=== PATIENT | female | born 1975 | race Caucasian/White ===

== ENCOUNTER 2019-07-10 11:03 | Inpatient (IN) | payer MEDICAID ==
[~2019-07-10] VITALS: Ht 170.2 cm; Wt 94.0 kg
[2019-07-10] MEDS ORDERED: hydrOXYzine 25 MG tablet PO PRN (14:30)
[2019-07-10] MEDS ORDERED: loperamide 2mg capsule PO PRN (14:30)
[2019-07-10] MEDS ORDERED: LORazepam 1 MG tablet PO PRN (14:30)
[2019-07-10] MEDS ORDERED: magnesium hydroxide 30ml (MOM) UD suspension PO PRN (14:30)
[2019-07-10] MEDS ORDERED: mag hydrox/Alum hydrox/simeth 30ml oral suspension PO PRN (14:30)
[2019-07-10] MEDS ORDERED: FLU VACC QS2019-20 36MOS UP/PF 60 MCG/0.5 ML SYRINGE IMVAC ONE (15:35)
[2019-07-10 15:47] VITALS: BP 137/92
[2019-07-10] MEDS: acetaminophen 325mg tablet PO PRN (16:31)
--- NOTE | 2019-07-10 16:53 | NUR ---
ADMIT NOTE The patient is a 44 year old female from [facility]. She had been living at [facility]. She has a history of Depression, Schizophrenia, DMII, Hypothyroidism, and Knee Pain. It is reported in outside medical records she stopped taking her medications 1 week ago, but in another area it was reported no meds taken for the last 30 days. The correction reported she stopped eating, and speaking and could no longer care for herself. The patient does not speak. She will follow simple commands like "open your mouth" or "put your hands down" when prompted several times. She keeps her eyes shut and has rigid, shaky movements. She grabs her front tooth and at times both ears and acts as though she cannot let go. Her tox screen yesterday was negative. Medical records indicate she is a current every day smoker. She has a college degree, and has had a tubal ligation in 2017. She is currently on a LOS for fall risk and is unable to walk more than a step or two.
[2019-07-10 18:22] LABS: BASOPHILS # (AUTO) 0.1 X10'3 (0-0.2); BASOPHILS % (AUTO) 0.7 % (0-1); EOSINOPHILS % (AUTO) 0.2 % (0-6); HEMATOCRIT 42.8 % (35.0-45.0); HEMOGLOBIN 14.7 g/dl (12.0-16.0); LYMPHOCYTES # (AUTO) 1.2 X10'3 (1.1-4.8); LYMPHOCYTES % (AUTO) 10.9 % (21-51); MEAN CORPUSCULAR HEMOGLOBIN 32.5 PG (27.0-31.0); MEAN CORPUSCULAR HGB CONC 34.5 g/dL (33.0-36.5); MEAN CORPUSCULAR VOLUME 94.3 FL (78-98); MEAN PLATELET VOLUME 8.4 FL (7.4-10.4); MONOCYTES # (AUTO) 0.9 X10'3 (0-0.9); MONOCYTES % (AUTO) 8.3 % (2-12); NEUTROPHILS # (AUTO) 8.6 X10'3 (1.8-7.7); NEUTROPHILS % (AUTO) 79.9 % (42-75); PLATELET COUNT 350 X10'3 (140-440); RED BLOOD COUNT 4.54 X10'6 (4.20-5.60); RED CELL DISTRIBUTION WIDTH 12.4 % (11.5-14.5); WHITE BLOOD COUNT 10.8 X10'3 (4.5-11.0)
[2019-07-10 20:30] VITALS: BP 147/87
[2019-07-10] MEDS ORDERED: OLANZapine 5mg rapidly disint. tablet PO SCH (21:00)
[2019-07-10] MEDS ORDERED: CLOZAPINE 100 MG TAB.RAPDIS PO SCH (21:00)
[2019-07-10] MEDS ORDERED: benztropine 1mg tablet PO SCH (21:00)
[2019-07-10] MEDS ORDERED: CLOZAPINE 25 MG oral disintegrating tablet PO SCH (21:00)
[2019-07-10 22:40] VITALS: BP 130/74
--- NOTE | 2019-07-10 22:40 | NUR ---
Nursing Note: At approximately 2240, around one-hour after administering ordered dose of Clozaril, pt. began drooling and coughing while laying in bed. HOB raised and pt. repositioned for safety to prevent aspiration. V/S obtained, pulse and temperature slightly elevated, however BP and oxygen saturation WNL and lung sounds clear bilaterally. Pt. has a strong cough and is able to clear thin saliva, and spontaneously expectorate. She continues to be monitored throughout the night, and V/S return to WNL. Will endorse to AM shift and monitor.
[2019-07-11] MEDS ORDERED: DOCU-148 PO (00:19)
[2019-07-11] MEDS ORDERED: [UNRECOGNIZED DRUG - CODE] OT (00:19)
[2019-07-11] MEDS ORDERED: LITH300C PO (00:19)
[2019-07-11] MEDS ORDERED: LEVO125T PO (00:19)
[2019-07-11] MEDS ORDERED: LORA10TA7 PO (00:19)
[2019-07-11] MEDS ORDERED: MULT-685 PO (00:19)
[2019-07-11] MEDS ORDERED: BUDE10.2 INH (00:19)
[2019-07-11] MEDS ORDERED: FENO145T38 PO (00:19)
[2019-07-11] MEDS ORDERED: SUCR1TAB PO (00:19)
[2019-07-11] MEDS ORDERED: MELO-102 PO (00:19)
[2019-07-11] MEDS ORDERED: CLOZ100T35 PO (00:19)
[2019-07-11] MEDS ORDERED: DESO1TAB71 PO (00:19)
[2019-07-11] MEDS ORDERED: VENL150C2 PO (00:19)
[2019-07-11] MEDS ORDERED: FLUT15.87 NS (00:19)
[2019-07-11] MEDS ORDERED: DESM0.2T29 PO (00:19)
[2019-07-11] MEDS ORDERED: POLY17PO10 PO (00:19)
[2019-07-11] MEDS ORDERED: TROL141. TP (00:19)
[2019-07-11 00:21] VITALS: BP 111/66
--- NOTE | 2019-07-11 02:01 | NUR ---
Nursing Progress Note: Legal hold:5150 Client on involuntary status for GD Report received from nurse with use of SBAR: LUCRECIA Jack Why are they here: The patient is a 44 year old female from [facility]. She had been living at [facility]. She has a history of Depression, Schizophrenia, DMII, Hypothyroidism, and Knee Pain. It is reported in outside medical records she stopped taking her medications 1 week ago, but in another area it was reported no meds taken for the last 30 days. The retirement reported she stopped eating, speaking, and could no longer care for herself. The patient does not speak. She will follow simple commands like "open your mouth" or "put your hands down" when prompted several times. She keeps her eyes shut and has rigid, shaky movements. Pt. is virtually catatonic, and is on LOS r/t fall precautions. Assessment What has happened this shift: Pt. laying in bed sleeping at the beginning of the shift, she remains on LOS r/t fall precautions and to provide assistance with ADLs. Attempted to complete 1:1 at bedside, however pt. remains non-verbal and unable to assess, she does make occasional noises and appears to be responding to internal stimuli. However, pt.responds to name and touch and is able to follow some verbal commands. She initially holds the blankets up over her face, but will lower them when requested to do so by this mortgage or loan underwriter. Pt. does not open her eyes however, and is totally dependent upon staff in order to perform ADLs. She is incontinent of urine X2 and has a small BM this shift, two-person assist required in order to change and reposition pt. She is repositioned on a different side following each incontinence episode and heels are floated in bed. Her muscles remain rigid and she appears virtually catatonic. Pt. refuses dinner, however is able to eat a yogurt at HS with total assist from staff. She also consumes approximately 240mL of fluids in the form of ice chips and small spoonfuls of water. Pt's swallow reflex is delayed, but she is able to swallow effectively upon receiving prompting from staff. Will endorse to AM shift r/t possible need for a swallow study. No s/s of pain exhibited by pt. this shift, and she does not appear to be grabbing at her bilateral ear canals, as noted by the previous shift, will continue to monitor. Pt. does occasionally grab at her front teeth, however is able to be redirected. S/I, H/I: Unable to assess, pt. non-verbal A/VH: Unable to assess, pt. non-verbal, however she appears to be responding to internal stimuli and will reach for and grab at imaginary objects. Sleep: Appears fatigued ADL's: Pt. requires total staff assist in order to perform ADLs Group attendance: N/A Were meds taken: Yes Any med S/E: After taking ordered HS Clozaril, pt. began to cough and drool heavily (see previous note), will endorse to AM shift and MD. Mental Status Exam Appearance: Hair disheveled, appropriately dressed in hospital attire. Eye contact: None Behavior: Cooperative, fatigued, and catatonic Speech: Pt. is non-verbal Mood: Fatigued Affect: Flat Thought process: Unable to assess Thought Content: Unable to assess Cognition: Unable to assess (responds to name) Insight: Poor Judgment: Poor Interventions PRN's used: None Therapeutic interventions: Introduced self and attempted to establish rapport, maintained a safe and therapeutic environment, provided needed assistance with ADLs, monitored pt. behavior and need for intervention, and maintained LOS and fall precautions. Restraints/seclusion/emergency medication: N/A Justification of Continued Inpatient Treatment: Pt. requires interruption of current crisis, medication adjustments, and a safe and supportive environment.
[2019-07-11 02:38] VITALS: BP 118/87
[2019-07-11 05:40] VITALS: BP 139/84
--- NOTE | 2019-07-11 05:41 | NUR ---
Nursing Note: Obtained last set of V/S, they remain WNL. Performed incontinence care on pt., incontinent X3 this shift. Pt. cooperative with process, awoke and opened eyes and stated, "I'm sorry." She then closed her eyes and went back to sleep, will endorse to AM shift.
[2019-07-11] MEDS: levoTHYROXINE 125mcg tablet PO SCH ×2 (07:00→07:29)
[2019-07-11 07:20] VITALS: BP 126/78
[2019-07-11 08:37] LABS: BASOPHILS # (AUTO) 0.1 X10'3 (0-0.2); BASOPHILS % (AUTO) 0.9 % (0-1); EOSINOPHILS % (AUTO) 0.3 % (0-6); HEMATOCRIT 42.7 % (35.0-45.0); HEMOGLOBIN 14.6 g/dl (12.0-16.0); LYMPHOCYTES # (AUTO) 1.7 X10'3 (1.1-4.8); LYMPHOCYTES % (AUTO) 16.2 % (21-51); MEAN CORPUSCULAR HEMOGLOBIN 32.7 PG (27.0-31.0); MEAN CORPUSCULAR HGB CONC 34.3 g/dL (33.0-36.5); MEAN CORPUSCULAR VOLUME 95.3 FL (78-98); MEAN PLATELET VOLUME 8.4 FL (7.4-10.4); MONOCYTES # (AUTO) 1.3 X10'3 (0-0.9); NEUTROPHILS # (AUTO) 7.4 X10'3 (1.8-7.7); NEUTROPHILS % (AUTO) 70.6 % (42-75); PLATELET COUNT 319 X10'3 (140-440); RED BLOOD COUNT 4.48 X10'6 (4.20-5.60); RED CELL DISTRIBUTION WIDTH 12.6 % (11.5-14.5); WHITE BLOOD COUNT 10.4 X10'3 (4.5-11.0)
--- NOTE | 2019-07-11 08:52 | NUR ---
Presenting Problems: Pt transferred from [place] following 5150 due to GD after pt decompensated in [facility] home as a result of self d/c of meds. Interventions: Bio-psychosocial Assessment SS attempted to engage pt in completing her bio-psychosocial assessment this AM. However, pt was found to be in a deep sleep, did not respond when SS attempt to rouse pt via touch and verbal prompts. A infrastructure tech support service provider was @ pt's bedside due to fall risk. As pt is currently unable to participate in assessment and to provide information re her MH conditions & functioning, nor was SS able to provide informed consent information; SS contacted [facility] via phone to gather information pertaining to pt's history of SMI, functional impairments, and resources available to pt to facilitate dcp. Per t/c, pt will be homeless on 07/25/19 as she's been evicted, noticed served on 06/25/19. Pt had experienced a rapid decline of functioning in the [facility] home about 3 mos ago (refusal to attend to hygiene care, complete routine house chores and to follow directions/redirections from house staff), pt began to refuse medications about a month ago and experienced angry outbursts in home with verbal & behavioral aggressive posturing. In addition, pt also has a history of LPS Conservatorship via [facility], and [facility] is exploring possibility of T-con. As pt was not able to participate in assessment nor was she able to provide informed consent, TP was not signed by pt. Plan: SS will attempt to see pt later today to engage her in assessment, treatment planning, and dcp activities. Michelle Johnson LCSW Addendum: 07/11/19 at 0908 by Michelle VENTURA Amended: Links added.
[2019-07-11 09:06] LABS: CHOL/HDL RATIO 2.6 (0.00-4.99); CHOLESTEROL 165 MG/DL (0-200); HDL CHOLESTEROL 63 MG/DL (35-60); LDL CHOLESTEROL 85 MG/DL (50-100); TRIGLYCERIDES 82 MG/DL (20-135)
--- NOTE | 2019-07-11 10:53 | NUR ---
Presenting Problems: Pt on 5150 for GD, unable to participate in assessment interview, treatment & discharge planning @ this time due to current MH condition. Interventions: Collateral Contact- [facility] SS had t/c w/[facility] & spoke w/Alexandre, per t/c [facility] will be petitioning for T-con status for pt. Plan: SS will continue to f/u w/[facility] re pt's legal status & dcp. LINK AkhtarW Addendum: 07/11/19 at 1057 by Michelle Johnson Amended: Links added.
[2019-07-11 11:30] LABS: ALANINE AMINOTRANSFERASE 17 U/L (12-78); ALBUMIN 3.8 G/DL (3.4-5.0); ALBUMIN/GLOBULIN RATIO 1.1 (1.1-1.5); ALKALINE PHOSPHATASE 43 IU/L (46-116); ANION GAP 14 (8-16); ASPARTATE AMINO TRANSFERASE 19 U/L (10-37); BILIRUBIN,TOTAL 0.5 MG/DL (0.1-1.0); BLOOD UREA NITROGEN 35 MG/DL (7-18); BUN/CREATININE RATIO 48.6 (6.6-38.0); CALCIUM 9.7 MG/DL (8.5-10.1); CHLORIDE 109 MMOL/L (99-107); CREATINE KINASE 25 U/L (26-192); CREATININE 0.72 MG/DL (0.40-0.90); GLUCOSE 114 MG/DL (70-104); POTASSIUM 3.4 MMOL/L (3.5-5.1); SODIUM 145 MMOL/L (135-145); TOTAL CARBON DIOXIDE 22.3 MMOL/L (24-32); TOTAL PROTEIN 7.2 G/DL (6.4-8.2); eGFR 88 ML/MIN
[2019-07-11] MEDS: LORazepam 1 MG tablet PO SCH (16:00)
--- NOTE | 2019-07-11 16:43 | NUR ---
Nursing Progress Note: Brianna Legal hold:5150 Client on involuntary status for GD Report received from nurse with use of SBAR: LUCRECIA Dias Why are they here: The patient is a 44 year old female from [facility]. She had been living at [facility]. She has a history of Depression, Schizophrenia, DMII, Hypothyroidism, and Knee Pain. It is reported in outside medical records she stopped taking her medications 1 week ago, but in another area it was reported no meds taken for the last 30 days. The prison reported she stopped eating, speaking, and could no longer care for herself. The patient does not speak. She will follow simple commands like "open your mouth" or "put your hands down" when prompted several times. She keeps her eyes shut and has rigid, shaky movements. Pt. is virtually catatonic, and is on LOS r/t fall precautions. Assessment What has happened this shift: Pt. laying in bed sleeping at the beginning of the shift. It was reported that client was drooling excessively and initially had a temp. of 99.5 followed by another follow up temp of 100.5 within the hour. I assumed her care at 0830 and her temp was 99.5. At 0900 hours, client temp remained at 99.5. She is unable to eat or conduct ADL's and was on LOS until 0900. Client responds to loud verbal stimuli but will only move her eyes. Cold compresses in place for client comfort to head, neck area. Client HOB at 30 degrees and informal aspiration precautions utilized. MINH Galindoey on unit at 0920 hours and is aware of client condition. At 0930, patient temp was 100.4. Charge Nurse and PA made aware verbally. Labs ordered STAT at 1020 hours (CMP and CK) per Arturo Schwab. FS was 113 this am. Temp at 1036 hours was 98.5. Temp is now 98.5 (1113 hours). Client to be turned q2 hours to prevent further skin breakdown.. Reddened area noted over coccyx area. CRN aware as is PA in charge of her care. Barrier Cream will be utilized PRN for any affected areas. Client will also be encouraged to increase fluid intake. All Staff members are aware of these issues and orders. Temp at 1229 hours was 99.5. All temps have been taken by temporal method. Client is unable to feed herself and will require 1:1 for delivery of lunch. Client is now able to open her eyes and communicate her needs to Staff (1312 hours). Client did consume 50 percent of her noon meal with full assistance from Tech (Baltazar). X-Ray tech is at 1453 hours. Temp at 1515 hours was 99.0. Client has been getting position changed Q2 hours to prevent skin breakdown. Client temp at 1641 hours is 99.0. Position changes continue Q2 hours to prevent further breakdown over coccyx area. Barrier cream is in [employer] for patient. S/I, H/I: Unable to assess, pt. non-verbal A/VH: Unable to assess, pt. non-verbal, however she appears to be responding to internal stimuli and will reach for and grab at imaginary objects. Sleep: resting frequently this shift. ADL's: Pt. requires total staff assist in order to perform ADLs Group attendance: N/A Were meds taken: no Any med S/E: After taking ordered HS Clozaril, pt. began to cough and drool heavily (see previous note), will endorse to AM shift and MD. Mental Status Exam Appearance: Hair disheveled, appropriately dressed in hospital attire. Eye contact: None Behavior: Cooperative, fatigued, and catatonic Speech: Pt. is non-verbal Mood: Fatigued Affect: Flat Thought process: Unable to assess Thought Content: Unable to assess Cognition: Unable to assess (responds to name) Insight: Poor Judgment: unable to assess Interventions PRN's used: None Therapeutic interventions: Introduced self and attempted to establish rapport, maintained a safe and therapeutic environment, provided needed assistance with ADLs, monitored pt. behavior and need for intervention, and maintained LOS and fall precautions. Restraints/seclusion/emergency medication: N/A Justification of Continued Inpatient Treatment: Pt. requires interruption of current crisis, medication adjustments, and a safe and supportive environment.
[2019-07-11] MEDS ORDERED: azithromycin 250mg tablet PO ONE (18:00)
[2019-07-11 20:06] VITALS: BP 143/82
[2019-07-11] MEDS: CLOZAPINE 100 MG TAB.RAPDIS PO SCH (21:22)
[2019-07-11] MEDS ORDERED: lithium carbonate 150mg capsule PO SCH (21:41)
[2019-07-11] MEDS ORDERED: lithium carbonate 150mg capsule PO ONE (21:45)
--- NOTE | 2019-07-11 22:07 | NUR ---
Nursing Note: Pharmacy sent Dimock Carbonate ER for pt., clarified order on Med Recc and per MD notes that order was meant to be Dimock Carbonate 300mg at HS. Medication order adjusted according by pharmacy.
[2019-07-12] MEDS: LORazepam 1 MG tablet PO SCH ×3 (00:06→16:00)
--- NOTE | 2019-07-12 00:57 | NUR ---
Nursing Progress Note: Legal hold:5150 Client on involuntary status for GD Report received from nurse with use of SBAR: LUCRECIA Urbina Why are they here: The patient is a 44 year old female from [facility]. She had been living at [facility]. She has a history of Depression, Schizophrenia, DMII, Hypothyroidism, and Knee Pain. It is reported in outside medical records she stopped taking her medications 1 week ago, but in another area it was reported no meds taken for the last 30 days. The detention reported she stopped eating, speaking, and could no longer care for herself. The patient does not speak. She will follow simple commands like "open your mouth" or "put your hands down" when prompted several times. She keeps her eyes shut and has rigid, shaky movements. Pt. is virtually catatonic, and is on LOS r/t fall precautions. Assessment What has happened this shift: Pt. laying in bed with eyes closed at the beginning of the shift, she continues on fall precautions and requires maximum assistance with ADLs. Attempted to complete 1:1 at bedside, pt. remains non-verbal, however she does respond to her name and touch. She will nod yes/no to some questions such as (are you hungry/thirsty?) Pt. does not open her eyes, but is able to follow simple commands, and continues to present as somewhat internally preoccupied. It was given in report that pt was able to eat 100% of her dinner and she accepts an HS snack, however she continues to require full assistance to eat. Her swallow reflex appears to be intact without delay, and she does not require prompting in order to appropriately swallow as noted previously. Pt. has an occasional non-productive strong cough, head of bed remains elevated at 30 degrees per aspiration precautions. She continues to be virtually catatonic, however is able to move her bilateral upper arms, but her lower body remains rigid. Pt. continues to be incontinent and requires maximum two-person assist for corky-care. She is repositioned Q 2 hrs, heels floated with antonio boots in place to prevent skin breakdown, barrier cream applied to buttocks, and fluids encouraged upon each repositioning. No s/s of pain exhibited by pt. this shift, and she does not appear to be grabbing at ears/teeth, as noted previously, will continue to monitor. V/S WNL, bed low and locked r/t fall precautions, fall band in place, and Q 15 min safety checks. S/I, H/I: Unable to assess, pt. non-verbal A/VH: Unable to assess, pt. non-verbal, she does not open her eyes but continues to present as somewhat internally preoccupied. Sleep: Continues to appear fatigued and sleeping well ADL's: Pt. requires total staff assist in order to perform ADLs Group attendance: N/A Were meds taken: Yes Any med S/E: None Mental Status Exam Appearance: Hair disheveled, appropriately dressed in hospital attire. Eye contact: None Behavior: Cooperative, fatigued, and catatonic Speech: Pt. is non-verbal Mood: Fatigued Affect: Flat Thought process: Unable to assess Thought Content: Unable to assess Cognition: Unable to assess (responds to name) Insight: Poor Judgment: Poor Interventions PRN's used: None Therapeutic interventions: Maintained a safe and therapeutic environment, provided needed assistance with ADLs, repositioned Q 2hrs to maintain skin integrity and offered fluids, monitored pt. behavior and need for intervention, maintained aspiration precautions, and maintained Q 15 min safety checks and fall precautions. Restraints/seclusion/emergency medication: N/A Justification of Continued Inpatient Treatment: Pt. continues to be gravely disabled and virtually catatonic, she requires medication adjustments, and a safe and supportive environment.
[2019-07-12 02:30] VITALS: BP 135/86
--- NOTE | 2019-07-12 02:30 | NUR ---
Nursing Note: Upon pt. reposition Q 2 hr as scheduled, pt. noted to have a increased drooling and had soaked a large area on her gown. When she was laid flat in order to reposition, pt. again began to choke on her saliva and HOB was quickly returned to 30 degree elevation by staff. V/S obtained and WNL and lung sounds remain clear, although difficult to auscultate r/t pt. snoring. Will continue to monitor pt. and endorse to AM shift.
[2019-07-12] MEDS ORDERED: venlafaxine XR 37.5mg cap (Q24H) PO SCH (08:00)
[2019-07-12] MEDS: levoTHYROXINE 125mcg tablet PO SCH (08:09)
[2019-07-12] MEDS: acetaminophen 325mg tablet PO PRN ×2 (08:09→17:28)
[2019-07-12] MEDS: venlafaxine XR 75mg capsule (Q24H) PO SCH (08:09)
[2019-07-12 08:29] VITALS: BP 121/69
--- NOTE | 2019-07-12 13:44 | NUR ---
Nursing Progress Note: Legal hold:5150 Client on involuntary status for GD Report received from LUCRECIA Jennings with use of SBAR Why are they here: The patient is a 44 year old female from [facility]. She had been living at [facility]. She has a history of Depression, Schizophrenia, DMII, Hypothyroidism, and Knee Pain. It is reported in outside medical records she stopped taking her medications 1 week ago, but in another area it was reported no meds taken for the last 30 days. The custodial reported she stopped eating, speaking, and could no longer care for herself. The patient does not speak. She will follow simple commands like "open your mouth" or "put your hands down" when prompted several times. She keeps her eyes shut and has rigid, shaky movements. Pt. is virtually catatonic, and is on LOS r/t fall precautions. Assessment What has happened this shift: The patient was asleep soundly at change of shift. She was awakened for breakfast which she ate 100% with max assist. Medications were administered by placing meds on spoon with food. She had no problems swallowing and has an intaact gag reflex. She has a mild productive cough. Lungs are clear on auscultation and x-ray. VSS. Outer ear canals are no longer reddened, and corky area is clean with no rashes. Patient had full bed bath including washing her hair, lotion and barrier cream was applied. Her feet are in booties and her heels floated. Responds to her name and follows simple commands like "raise your head, open your mouth, turn towards me." She was assisted up to toilet with 2 person assist and gait belt. she was able to urinate on toilet. When asked by provider if she is hearing voices states "YES". She was reassured she was in a safe place. She does not open her eyes and hardly speaks. Unable to eat lunch due to sleepiness. ASSESSMENT SI/HI : unable to assess A/VH: states she is hearing voices Sleep: Sleeping most of day ADL's: Pt. requires total staff assist in order to perform ADLs Group attendance: No Were meds taken: Yes Any med S/E: None Mental Status Exam Appearance: Hair disheveled, appropriately dressed in hospital attire. Eye contact: None Behavior: Sedated Speech: Pt. is non-verbal Mood: Fatigued Affect: Flat Thought process: Unable to assess Thought Content: Unable to assess Cognition: Unable to assess (responds to name) Insight: Poor Judgment: Poor Interventions PRN's used: None Therapeutic interventions: Maintained a safe and therapeutic environment, provided needed assistance with ADLs, repositioned Q 2hrs to maintain skin integrity and offered fluids, monitored pt. behavior and need for intervention, maintained aspiration precautions, and maintained Q 15 min safety checks and fall precautions. Restraints/seclusion/emergency medication: N/A Justification of Continued Inpatient Treatment: Pt. continues to be gravely disabled and virtually catatonic, she requires medication adjustments, and a safe and supportive environment.
[2019-07-12] MEDS: azithromycin 250mg tablet PO SCH (17:27)
[2019-07-12 20:00] VITALS: BP 110/70
[2019-07-12] MEDS: CLOZAPINE 100 MG TAB.RAPDIS PO SCH (21:15)
[2019-07-13] MEDS: acetaminophen 325mg tablet PO PRN (02:40)
--- NOTE | 2019-07-13 02:42 | NUR ---
Nursing Progress Note: Legal hold:5150 Client on involuntary status for GD Report received from nurse with use of SBAR: LUCRECIA Urbina Why are they here: The patient is a 44 year old female from [facility]. She had been living at [facility]. She has a history of Depression, Schizophrenia, DMII, Hypothyroidism, and Knee Pain. It is reported in outside medical records she stopped taking her medications 1 week ago, but in another area it was reported no meds taken for the last 30 days. The prison reported she stopped eating, speaking, and could no longer care for herself. The patient does not speak. She will follow simple commands like "open your mouth" or "put your hands down" when prompted several times. She keeps her eyes shut and has rigid, shaky movements. Pt. is virtually catatonic, and is on LOS r/t fall precautions. Assessment What has happened this shift: Pt. laying in bed with eyes closed at the beginning of the shift, she continues on fall precautions and requires maximum assistance with ADLs. Attempted to complete 1:1 at bedside, pt. is somewhat verbal, answering simple questions. She will nod yes/no to some questions. Pt. does not open her eyes, but is able to follow simple commands. She remains catatonic and when asked if she wanted to get up to use the bathroom she denied. Her swallow reflex appears to be intact without delay as she took all her medications mixed in with yogurt. Pt. has an occasional non-productive strong cough, head of bed remains elevated at 30 degrees per aspiration precautions. She continues to be virtually catatonic, she is able to move her upper extremities. She is repositioned Q 2 hrs, heels floated with antonio boots in place to prevent skin breakdown, barrier cream applied to buttocks, and fluids encouraged upon each repositioning. Pt woken up around 0200 and appeared to be grasping for air and coughing. Her oxygen saturation was between 94-96%. When asked if she was in pain, pt nodded and Tylenol was administered. Attempted to administered Ativan as scheduled but patient was unable to be aroused and unable to take medication. At this point pt's temperature was elevated at 99.4. Blankets were removed and wet clothe applied. When taken again an hour later, temperature was 98.2. Excessive drooling is also observed and pt still c/o of ear pain as she reaches to cover her left ear. S/I, H/I: Unable to assess, pt. non-verbal A/VH: Unable to assess, pt. non-verbal, she does not open her eyes but continues to present as somewhat internally preoccupied. Sleep: Continues to appear fatigued and sleeping well ADL's: Pt. requires total staff assist in order to perform ADLs Group attendance: N/A Were meds taken: Yes Any med S/E: None Mental Status Exam Appearance: Hair disheveled, appropriately dressed in hospital attire. Eye contact: None Behavior: Cooperative, fatigued, and catatonic Speech: Pt. is non-verbal Mood: Fatigued Affect: Flat Thought process: Unable to assess Thought Content: Unable to assess Cognition: Unable to assess (responds to name) Insight: Poor Judgment: Poor Interventions PRN's used: None Therapeutic interventions: Maintained a safe and therapeutic environment, provided needed assistance with ADLs, repositioned Q 2hrs to maintain skin integrity and offered fluids, monitored pt. behavior and need for intervention, maintained aspiration precautions, and maintained Q 15 min safety checks and fall precautions. Restraints/seclusion/emergency medication: N/A Justification of Continued Inpatient Treatment: Pt. continues to be gravely disabled and virtually catatonic, she requires medication adjustments, and a safe and supportive environment.
[2019-07-13 08:15] VITALS: BP 116/74
[2019-07-13] MEDS: levoTHYROXINE 125mcg tablet PO SCH (08:26)
[2019-07-13] MEDS: LORazepam 1 MG tablet PO SCH ×3 (08:27→16:00)
[2019-07-13] MEDS: venlafaxine XR 75mg capsule (Q24H) PO SCH (08:28)
[2019-07-13] MEDS: azithromycin 250mg tablet PO SCH (08:28)
--- NOTE | 2019-07-13 17:47 | NUR ---
Nursing Progress Note: Legal hold:5150 Client on involuntary status for GD Report received from [facility] with use of SBAR: Why are they here: The patient is a 44 year old female from [facility]. She had been living at [facility]. She has a history of Depression, Schizophrenia, DMII, Hypothyroidism, and Knee Pain. It is reported in outside medical records she stopped taking her medications 1 week ago, but in another area it was reported no meds taken for the last 30 days. [facility] reported she stopped eating, speaking, and could no longer care for herself. The patient does not speak. She will follow simple commands like "open your mouth" or "put your hands down" when prompted several times. She keeps her eyes shut and has rigid, shaky movements. Pt. is virtually catatonic, and is on LOS r/t fall precautions. Assessment What has happened this shift: Pt. laying in bed with eyes closed at the beginning of the shift, she continues on fall precautions and requires maximum assistance with ADLs. Pt got up for breakfast and ate on her own as well as with assist per unit tech at side. No aspiration noted, no drooling. Pt tolerated all food/fluid. Pt took medication without difficulty on her own with water. Pt went back to bed and got up again for a snack. She then was verbally responsive and opened her eyes spontaneously. Pt denies SI/HI. Pt up out of bed several times in wheelchair with assist. Eyes open, responsive. Pt with large BM in bathroom and assist to clean per unit tech. Pt refused afternoon Ativan. She answers simple questions. She will nod yes/no to some questions and is able to follow simple commands. Her swallow reflex appears to be intact without delay. Pt ate food and drank liquid without complication. Head of bed remains elevated at 30 degrees per aspiration precautions. She is repositioned Q 2 hrs, heels floated with antonio boots in place to prevent skin breakdown, barrier cream applied to buttocks, and fluids encouraged upon each repositioning. Pt up for dinner in w/c with staff assist. Talks with staff in hallway. S/I, H/I: Denies A/VH: Agrees and disagrees with halucinations Sleep: 8.25 last noc. Naps during the day ADL's: Pt. requires total staff assist in order to perform ADLs Group attendance: N/A Were meds taken: Yes Any med S/E: None Mental Status Exam Appearance: Hair disheveled, appropriately dressed in hospital attire. Eye contact: None Behavior: Cooperative, fatigued, and catatonic Speech: Pt. is non-verbal Mood: Fatigued Affect: Flat Thought process: Unable to assess Thought Content: Unable to assess Cognition: Unable to assess (responds to name) Insight: Poor Judgment: Poor Interventions PRN's used: None Therapeutic interventions: Maintained a safe and therapeutic environment, provided needed assistance with ADLs, repositioned Q 2hrs to maintain skin integrity and offered fluids, monitored pt. behavior and need for intervention, maintained aspiration precautions, and maintained Q 15 min safety checks and fall precautions. Restraints/seclusion/emergency medication: N/A Justification of Continued Inpatient Treatment: Pt. continues to be gravely disabled and virtually catatonic, she requires medication adjustments, and a safe and supportive environment.
[2019-07-13] MEDS: CLOZAPINE 100 MG TAB.RAPDIS PO SCH (20:39)
[2019-07-13] MEDS: lithium carbonate 150mg capsule PO SCH (20:40)
[2019-07-13 20:42] VITALS: BP 106/66
--- NOTE | 2019-07-13 23:46 | NUR ---
Nursing Progress Note: Legal hold:5150 Client on involuntary status for GD Report received from LUCRECIA Urbina, with use of SBAR: Why are they here: The patient is a 44 year old female from [facility]. She had been living at [facility]. She has a history of Depression, Schizophrenia, DMII, Hypothyroidism, and Knee Pain. It is reported in outside medical records she stopped taking her medications 1 week ago, but in another area it was reported no meds taken for the last 30 days. The detention reported she stopped eating, speaking, and could no longer care for herself. The patient does not speak. She will follow simple commands like "open your mouth" or "put your hands down" when prompted several times. She keeps her eyes shut and has rigid, shaky movements. Pt. is virtually catatonic, and is on LOS r/t fall precautions. Assessment What has happened this shift: Patient is awake and sitting in the day room in a wheelchair. Patient speaks easily to this mortgage or loan underwriter. Patient knows her name and has some awareness that she is in a mental health unit. The patient does not know much about place, nothing about time or date. She is cooperative and has slow but clear speech. She was reported to have been recently catatonic. The patient has eaten her dinner of approximately 57 carbohydrates. Patient states she did not go to group on the day shift. When asked why are you in a wheelchair the patient replies "bones in my body are broken." The patient states she had a BM today and it was normal. The patient displays some depression, she states "I'm sad." Patient denies S/I, H/I, or hallucinations. The patient was compliant in taking her night time medications. Patient became very sedate around 2200 hours. She was able to stand from wheelchair with assistance of staff only. Patient had a BM in her clothing. She was cleaned and placed in new scrubs. Patients 0000 hr Ativan was non administered as patient is sedate and sleeping. Per the tech's this patient has been very sedate post Clozapine administration. A note will be made to day shift RN to have this addressed with MD tomorrow. This patient is sleeping quietly at the time of this writing. S/I, H/I: Denies. A/VH: Patient denies. Sleep: Will tally at 0500. ADL's: Pt. requires total staff assist in order to perform ADLs Group attendance: N/A Were meds taken: Yes Any med S/E: None Mental Status Exam Appearance: Hair disheveled, appropriately dressed in hospital attire. Eye contact: None Behavior: Cooperative, fatigued, and catatonic Speech: Pt. is non-verbal Mood: Fatigued Affect: Flat Thought process: Unable to assess Thought Content: Unable to assess Cognition: Unable to assess (responds to name) Insight: Poor Judgment: Poor Interventions PRN's used: None Therapeutic interventions: Maintained a safe and therapeutic environment, provided needed assistance with ADLs, repositioned Q 2hrs to maintain skin integrity and offered fluids, monitored pt. behavior and need for intervention, maintained aspiration precautions, and maintained Q 15 min safety checks and fall precautions. Restraints/seclusion/emergency medication: N/A Justification of Continued Inpatient Treatment: Pt. continues to be gravely disabled and virtually catatonic, she requires medication adjustments, and a safe and supportive environment.
[2019-07-14 07:45] VITALS: BP 99/63
[2019-07-14] MEDS: levoTHYROXINE 125mcg tablet PO SCH (08:17)
[2019-07-14] MEDS: azithromycin 250mg tablet PO SCH (08:17)
[2019-07-14] MEDS: LORazepam 1 MG tablet PO SCH ×3 (08:17→16:49)
[2019-07-14] MEDS: venlafaxine XR 75mg capsule (Q24H) PO SCH (08:17)
[2019-07-14] MEDS: acetaminophen 325mg tablet PO PRN (08:19)
--- NOTE | 2019-07-14 10:05 | NUR ---
Pt refused a shower this morning, stated "maybe later." Skin is clean, dry, and intact. Addendum: 07/14/19 at 1006 by Amy Randall RN (Lee) Amended: Links added.
--- NOTE | 2019-07-14 10:07 | NUR ---
Pt may take a shower later, will continue to encourage. Addendum: 07/14/19 at 1007 by Amy Randall RN (Lee) Amended: Links added.
--- NOTE | 2019-07-14 15:51 | NUR ---
Nursing Progress Note: Legal hold:5250 Client on involuntary status for GD Report received from LUCRECIA Gu, with use of SBAR: Why are they here: The patient is a 44 year old female from [facility]. She had been living at [facility]. She has a history of Depression, Schizophrenia, DMII, Hypothyroidism, and Knee Pain. It is reported in outside medical records she stopped taking her medications 1 week ago, but in another area it was reported no meds taken for the last 30 days. The group home reported she stopped eating, speaking, and could no longer care for herself. The patient does not speak. She will follow simple commands like "open your mouth" or "put your hands down" when prompted several times. She keeps her eyes shut and has rigid, shaky movements. Pt. is virtually catatonic, and is on LOS r/t fall precautions. Assessment What has happened this shift: Pt was toileted before breakfast, ambulated to BR and was continent of urine with PCT min assist. Pt does need prompting/assistance to wipe well. Pt was awake and alert, ate 100% of breakfast, requested a milk with her breakfast, and 75% of lunch. Pt c/o left ear pain and was given Tylenol 650 mg, pt stated, "it's been hurting for days." Pt continues on PO ABX Zithromax. Pt was able to swallow several pills at a time with water. Pt thanked this RN for the water stating, "I already had enough milk." Pt denied depression, anxiety, SI/HI/AH/VH. Pt observed repositioning herself independently in bed, encouraged pt to allow heels to be floated. Pt has dry skin on bilateral feet, lotion applied. Slight blanchable redness noted on left buttock, pink blanchable coccyx. Pt refused shower today, skin is clean, dry, and intact. Pt was cooperative with Q2H toileting today, she ambulated to the BR from her bed each time, pt maintained continence, pt did not wear a brief. Notified psychiatrist Dr Roy of s/sx sedation after HS Clozaril 300 mg HS last night. He states he will decrease her Clozaril to 200 mg HS. S/I, H/I: Pt denied A/VH: Pt denied Sleep: Slept well per noc shift report, napped after meals. ADL's: Min assist of one, pt is able to ambulate to BR with min staff assist, she was wheeled in w/c to dining room for meals, continent of B&B today with routine toileting, ate/drank well at meals. Group attendance: No Were meds taken: Yes Any med S/E: Per Noc RN, increased sedation and episode of bowel incontinence after HS Clozaril given last night. Mental Status Exam Appearance: Hair disheveled, dressed in hospital gown. Eye contact: Good Behavior: Cooperative Speech: Clear, audible, minimal Mood: [place] Affect: Flat Thought process: Linear, able to follow commands Thought Content: Tired of her ear hurting, likes milk. Cognition: A/O X 1 Insight: Poor Judgment: Poor Interventions PRN's used: Tylenol 650 mg @ 0819. Therapeutic interventions: 1:1 assessment, establishment of rapport, maintained a safe and therapeutic environment, medication administration/monitoring/education, Q2H scheduled toileting, assistance/prompting with repositioning in bed and matias, min to mod assist with ADLs, encouragement to perform personal hygiene, bed alarm while in bed, maintained Q 15 min safety checks and fall precautions. Restraints/seclusion/emergency medication: N/A Justification of Continued Inpatient Treatment: Pt had a decline in cognition and function, she needs stabilization with medication adjustment and monitoring in a safe and therapeutic environment as well as ADL assistance to return to baseline, plan is to return to senior living once stable.
[2019-07-14] MEDS ORDERED: LORazepam 1 MG tablet PO PRN ×2 (17:55)
[2019-07-14 19:57] VITALS: BP 109/61
[2019-07-14] MEDS: lithium carbonate 150mg capsule PO SCH (20:35)
[2019-07-14] MEDS ORDERED: CLOZAPINE 100 MG TAB.RAPDIS PO SCH (21:00)
--- NOTE | 2019-07-14 22:53 | NUR ---
Nursing Progress Note: Legal hold:5250 Client on involuntary status for GD Report received from LUCRECIA Urbina, with use of SBAR: Why are they here: The patient is a 44 year old female from [facility]. She had been living at [facility]. She has a history of Depression, Schizophrenia, DMII, Hypothyroidism, and Knee Pain. It is reported in outside medical records she stopped taking her medications 1 week ago, but in another area it was reported no meds taken for the last 30 days. The shelter reported she stopped eating, speaking, and could no longer care for herself. The patient does not speak. She will follow simple commands like "open your mouth" or "put your hands down" when prompted several times. She keeps her eyes shut and has rigid, shaky movements. Pt. is virtually catatonic, and is on LOS r/t fall precautions. Assessment What has happened this shift: Pt was toileted Q2hrs Pt denied depression, anxiety, SI/HI/AH/VH. Pt observed repositioning herself independently in bed, encouraged pt to allow heels to be floated. Pt has dry skin on bilateral feet, lotion applied. Slight blanchable redness noted on left buttock, pink blanchable coccyx. Pt refused shower today, skin is clean, dry, and intact. Pt was cooperative with Q2H toileting today, she ambulated to the BR from her bed each time, pt maintained continence, pt did not wear a brief. Notified psychiatrist Dr Roy of s/sx sedation after HS Clozaril 300 mg HS last night. He states he will decrease her Clozaril to 200 mg HS. S/I, H/I: Pt denied A/VH: Pt denied Sleep: Slept well per noc shift report, napped after meals. ADL's: Min assist of one, pt is able to ambulate to BR with min staff assist, she was wheeled in w/c to dining room for meals, continent of B&B today with routine toileting, ate/drank well at meals. Group attendance: No Were meds taken: Yes Any med S/E: Per Noc RN, increased sedation and episode of bowel incontinence after HS Clozaril given last night. Mental Status Exam Appearance: Hair disheveled, dressed in hospital gown. Eye contact: Good Behavior: Cooperative Speech: Clear, audible, minimal Mood: [place] Affect: Flat Thought process: Linear, able to follow commands Thought Content: Tired of her ear hurting, likes milk. Cognition: A/O X 1 Insight: Poor Judgment: Poor Interventions PRN's used: Tylenol 650 mg @ 0819. Therapeutic interventions: 1:1 assessment, establishment of rapport, maintained a safe and therapeutic environment, medication administration/monitoring/education, Q2H scheduled toileting, assistance/prompting with repositioning in bed and matias, min to mod assist with ADLs, encouragement to perform personal hygiene, bed alarm while in bed, maintained Q 15 min safety checks and fall precautions. Restraints/seclusion/emergency medication: N/A Justification of Continued Inpatient Treatment: Pt had a decline in cognition and function, she needs stabilization with medication adjustment and monitoring in a safe and therapeutic environment as well as ADL assistance to return to baseline, plan is to return to long-term once stable.
[2019-07-15] MEDS: venlafaxine XR 75mg capsule (Q24H) PO SCH (07:23)
[2019-07-15] MEDS: azithromycin 250mg tablet PO SCH (07:23)
[2019-07-15] MEDS: levoTHYROXINE 125mcg tablet PO SCH (07:23)
[2019-07-15] MEDS: LORazepam 1 MG tablet PO SCH ×3 (07:23→16:03)
[2019-07-15 11:12] VITALS: BP 100/64
--- NOTE | 2019-07-15 14:06 | NUR ---
Eating well, improved PO intake from admission from 0% to 75-100% PO intake. No nutrition problem at this time. Will continue to follow. Recommend: 1. continue carb controlled diet 2. bowel care as needed 3. Weekly weights Addendum: 07/15/19 at [address] Amended: Links added.
--- NOTE | 2019-07-15 18:05 | NUR ---
Nursing Progress Note: Legal hold:5250 Client on involuntary status for GD Report received from LUCRECIA Bush, with use of SBAR: Why are they here: The patient is a 44 year old female from [facility]. She had been living at [facility]. She has a history of Depression, Schizophrenia, DMII, Hypothyroidism, and Knee Pain. It is reported in outside medical records she stopped taking her medications 1 week ago, but in another area it was reported no meds taken for the last 30 days. The residential reported she stopped eating, speaking, and could no longer care for herself. The patient does not speak. She will follow simple commands like "open your mouth" or "put your hands down" when prompted several times. She keeps her eyes shut and has rigid, shaky movements. Pt. is virtually catatonic, and is on LOS r/t fall precautions. Assessment What has happened this shift: Pt was toileted before breakfast, ambulated to BR and was continent of urine with PCT min assist. Pt does need prompting/assistance to wipe well. Pt was able to swallow several pills at a time with water, and is pleasant and cooperative with care. Pt denied SI/HI/AH/VH. Pt observed repositioning herself independently in bed, encouraged pt to allow heels to be floated. Pt refused shower today, skin is clean, dry, and intact. Pt was cooperative with Q2H toileting today, she ambulated to the BR from her bed each time, pt maintained continence except for one episode. She did wear a brief. She was in bed the majority of the shift, only getting up for meals. She turned and repositioned herself with prompting. She did talk today and answer questions in the morning during med pass and then seemed to realize that she was responding to me and stopped talking and started using hand gestures to answer. S/I, H/I: Pt denied A/VH: Pt denied Sleep: napped and was in bed the majority of the shift. ADL's: Min assist of one, pt is able to ambulate to BR with min staff assist, she was wheeled in w/c to dining room for meals. Group attendance: No Were meds taken: Yes Any med S/E: Pt was tired today, unsure that this is a S/E Mental Status Exam Appearance: Hair disheveled, dressed in hospital gown. Eye contact: fair Behavior: Cooperative Speech: Clear, audible, minimal Mood: [place] Affect: Flat Thought process: Linear, able to follow commands Thought Content: "I am tired". Cognition: A/O X 1 Insight: Poor Judgment: Poor Interventions PRN's used: none Therapeutic interventions: 1:1 assessment, establishment of rapport, maintained a safe and therapeutic environment, medication administration/monitoring/education, Q2H scheduled toileting, assistance/prompting with repositioning in bed and chair, min assist with ADLs, encouragement to perform personal hygiene, bed alarm while in bed, maintained Q 15 min safety checks and fall precautions. Restraints/seclusion/emergency medication: N/A Justification of Continued Inpatient Treatment: Pt had a decline in cognition and function, she needs stabilization with medication adjustment and monitoring in a safe and therapeutic environment as well as ADL assistance to return to baseline, plan is to return to halfway once stable.
[2019-07-15] MEDS: CLOZAPINE 25 MG oral disintegrating tablet PO SCH (20:26)
[2019-07-15] MEDS: CLOZAPINE 100 MG TAB.RAPDIS PO SCH (20:26)
[2019-07-15] MEDS: lactobacillus rhamnosus 10,000 MMU CELLS/CAPSULE PO SCH (20:27)
[2019-07-15] MEDS: lithium carbonate 150mg capsule PO SCH (20:29)
[2019-07-15 20:45] VITALS: BP 115/64
--- NOTE | 2019-07-15 20:59 | NUR ---
Nursing Progress Note: Legal hold:5250 Client on involuntary status for GD Report received from LUCRECIA Urbina, with use of SBAR: Why are they here: The patient is a 44 year old female from [facility]. She had been living at [facility]. She has a history of Depression, Schizophrenia, DMII, Hypothyroidism, and Knee Pain. It is reported in outside medical records she stopped taking her medications 1 week ago, but in another area it was reported no meds taken for the last 30 days. The [facility] reported she stopped eating, speaking, and could no longer care for herself. The patient does not speak. She will follow simple commands like "open your mouth" or "put your hands down" when prompted several times. She keeps her eyes shut and has rigid, shaky movements. Pt. is virtually catatonic, and is on LOS r/t fall precautions. Assessment What has happened this shift: Pt was in bed at start of shift toileting on her own with out prompting. Pt denied SI/HI/AH/VH. Pt observed repositioning herself independently in bed, encouraged pt to allow heels to be floated. Pt refused shower today, skin is clean, dry, and intact. Pt was cooperative with Q2H toileting today, she ambulated to the BR from her bed each time, pt maintained continence this shift. Patient was able to communicate with nurse and was compliant with medications. Patient able to ambulate to anf from bathroom on her own. S/I, H/I: Pt denied A/VH: Pt denied Sleep: napped and was in bed the majority of the shift. ADL's: Min assist of one, pt is able to ambulate to BR with min staff assist, she was wheeled in w/c to dining room for meals. Group attendance: No Were meds taken: Yes Any med S/E: Pt was tired today, unsure that this is a S/E Mental Status Exam Appearance: Hair disheveled, dressed in hospital gown. Eye contact: fair Behavior: Cooperative Speech: Clear, audible, minimal Mood: [place] Affect: Flat Thought process: Linear, able to follow commands Thought Content: "I am tired". Cognition: A/O X 1 Insight: Poor Judgment: Poor Interventions PRN's used: none Therapeutic interventions: 1:1 assessment, establishment of rapport, maintained a safe and therapeutic environment, medication administration/monitoring/education, Q2H scheduled toileting, assistance/prompting with repositioning in bed and chair, min assist with ADLs, encouragement to perform personal hygiene, bed alarm while in bed, maintained Q 15 min safety checks and fall precautions. Restraints/seclusion/emergency medication: N/A Justification of Continued Inpatient Treatment: Pt had a decline in cognition and function, she needs stabilization with medication adjustment and monitoring in a safe and therapeutic environment as well as ADL assistance to return to baseline, plan is to [facility] jail once stable.
[2019-07-16] MEDS: lactobacillus rhamnosus 10,000 MMU CELLS/CAPSULE PO SCH ×2 (07:41→20:15)
[2019-07-16] MEDS: venlafaxine XR 75mg capsule (Q24H) PO SCH (07:42)
[2019-07-16] MEDS: levoTHYROXINE 125mcg tablet PO SCH (07:42)
[2019-07-16] MEDS: LORazepam 1 MG tablet PO SCH ×3 (07:42→16:56)
[2019-07-16 08:33] VITALS: BP 104/70
[2019-07-16] MEDS: acetaminophen 325mg tablet PO PRN (14:48)
--- NOTE | 2019-07-16 17:07 | NUR ---
Nursing Progress Note: Legal hold: 5250 Client on involuntary status for GD Report received from LUCRECIA Dias, with use of SBAR: Why are they here: The patient is a 44 year old female from [facility]. She had been living at [facility]. She has a history of Depression, Schizophrenia, DMII, Hypothyroidism, and Knee Pain. It is reported in outside medical records she stopped taking her medications 1 week ago, but in another area it was reported no meds taken for the last 30 days. The long-term reported she stopped eating, speaking, and could no longer care for herself. The patient does not speak. She will follow simple commands like "open your mouth" or "put your hands down" when prompted several times. She keeps her eyes shut and has rigid, shaky movements. Pt. is virtually catatonic, and is on LOS r/t fall precautions. Assessment What has happened this shift: Patient is observed sleeping at change of shift. She is woken and taken to the bathroom and then to the group room for breakfast. She takes her medications without issue and finishes her meal. She attends one group but then returns to her room to rest. She tells this RN that she is doing well today, denies AV/H. She states that her left ear is hurting her, RN applied warm washrag, gave hot tea and administered Tylenol. Patient states that these things helped and she rested in her room. S/I, H/I: Pt denied A/VH: Pt denied Sleep: 9.75 hrs NOC and rested during the day ADL's: Min assist of one, pt is able to ambulate to with min staff assist, she was wheeled in w/c to dining room for meals. Group attendance: yes Were meds taken: Yes Any med S/E: no Mental Status Exam Appearance: Hair disheveled, dressed in hospital gown. Eye contact: direct Behavior: Cooperative Speech: Clear, poverty Mood: content Affect: restricted Thought process: Linear Thought Content: no delusional thought content expressed Cognition: A/O X 3 Insight: Poor Judgment: Poor Interventions PRN's used: Tylenol for ear ache Therapeutic interventions: 1:1 assessment, establishment of rapport, maintained a safe and therapeutic environment, medication administration/monitoring/education, Q2H scheduled toileting, assistance/prompting with repositioning in bed and chair, min assist with ADLs, encouragement to perform personal hygiene, bed alarm while in bed, maintained Q 15 min safety checks and fall precautions. Restraints/seclusion/emergency medication: N/A Justification of Continued Inpatient Treatment: Pt had a decline in cognition and function, continued therapeutic support and medication management needed to provide stabilization, prevent decompensation, decreasing risk to patient and re-admittance. Plan is for patient to return to nursing home once stable.
[2019-07-16 20:00] VITALS: BP 112/68
[2019-07-16] MEDS: CLOZAPINE 25 MG oral disintegrating tablet PO SCH (20:16)
[2019-07-16] MEDS: lithium carbonate 150mg capsule PO SCH (20:16)
[2019-07-16] MEDS: CLOZAPINE 100 MG TAB.RAPDIS PO SCH (20:17)
--- NOTE | 2019-07-16 20:57 | NUR ---
Nursing Progress Note: Legal hold: 5250 Client on involuntary status for GD Report received from LUCRECIA Urbina, with use of SBAR: Why are they here: The patient is a 44 year old female from [facility]. She had been living at [facility]. She has a history of Depression, Schizophrenia, DMII, Hypothyroidism, and Knee Pain. It is reported in outside medical records she stopped taking her medications 1 week ago, but in another area it was reported no meds taken for the last 30 days. The long-term reported she stopped eating, speaking, and could no longer care for herself. The patient does not speak. She will follow simple commands like "open your mouth" or "put your hands down" when prompted several times. She keeps her eyes shut and has rigid, shaky movements. Pt. is virtually catatonic, and is on LOS r/t fall precautions. Assessment What has happened this shift: Patient is sleeping at change of shift. She is awaken for medication She takes her medications without issue . She denies SI/HI AV/Hat this time. Q 2hr prompting for toilet and repositioning. S/I, H/I: Pt denied A/VH: Pt denied Sleep: 9.75 hrs NOC and rested during the day ADL's: Min assist of one, pt is able to ambulate to BR with min staff assist, she was wheeled in w/c to dining room for meals. Group attendance: yes Were meds taken: Yes Any med S/E: no Mental Status Exam Appearance: Hair disheveled, dressed in hospital gown. Eye contact: direct Behavior: Cooperative Speech: Clear, poverty Mood: content Affect: restricted Thought process: Linear Thought Content: no delusional thought content expressed Cognition: A/O X 3 Insight: Poor Judgment: Poor Interventions PRN's used: none Therapeutic interventions: 1:1 assessment, establishment of rapport, maintained a safe and therapeutic environment, medication administration/monitoring/education, Q2H scheduled toileting, assistance/prompting with repositioning in bed and chair, min assist with ADLs, encouragement to perform personal hygiene, bed alarm while in bed, maintained Q 15 min safety checks and fall precautions. Restraints/seclusion/emergency medication: N/A Justification of Continued Inpatient Treatment: Pt had a decline in cognition and function, continued therapeutic support and medication management needed to provide stabilization, prevent decompensation, decreasing risk to patient and re-admittance. Plan is for patient to return to halfway once stable.
[2019-07-17 08:00] VITALS: BP 108/78
[2019-07-17] MEDS: lactobacillus rhamnosus 10,000 MMU CELLS/CAPSULE PO SCH ×2 (08:23→21:16)
[2019-07-17] MEDS: venlafaxine XR 75mg capsule (Q24H) PO SCH (08:23)
[2019-07-17] MEDS: levoTHYROXINE 125mcg tablet PO SCH (08:23)
[2019-07-17] MEDS: LORazepam 1 MG tablet PO SCH ×3 (08:23→17:47)
--- NOTE | 2019-07-17 08:46 | NUR ---
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 Interventions: Continuity of Care/Linkages SS had t/c with [facility], Ann-Marie @ [phone] to f/u on conservatorship plan. per t/c, a program management intern will return t/c at later time to participate in dcp activities for pt. Plan: SS to continue to engage [facility] in dcp activities; pt will rt to [facility] upon d/c. Michelle Johnson LCSW Addendum: 07/17/19 at 0854 by Michelle Johnson Amended: Links added.
--- NOTE | 2019-07-17 15:27 | NUR ---
Discharge Planning Presenting Issues: Pt's a [facility], who was 5150 & admitted to [facility] on 07/10/19 for GD condition and was in a catonic state @ time of admission. Pt's now on a [address] [facility] w/re to possible LPS Conservatorship. Interventions: DCP SS had t/c contact /[facility] supervisor color paste mixing (Chioma) this morning and was informed that [facility] will pursue LPS Conservatorship of pt, [facility] requested that an LPS recommendation be faxed to them, to the attention of Ann-Marie @ [phone]. Plan: SS to complete & fax recommendation for LPS Conservatorship to [facility]. Michelle Johnson LCSW Addendum: 07/17/19 at 1533 by Michelle VENTURA Amended: Links added.
--- NOTE | 2019-07-17 15:36 | NUR ---
Discharge Planning SS had t/c with pt's [facility]'s CM-Chinmay, per t/c, [facility] will not move fwd w/LPS Conservatorship as [facility] has not had much outpatient contacts with pt yet. Pt will go to [facility] upon d/c ([id number] [place]. [facility] will provide transport and f/u care. Plan: SS to consult w/attending physician to determine dcp needs. Michelle Johnson LCSW Addendum: 07/17/19 at 1556 by Michelle Johnson Amended: Links added.
--- NOTE | 2019-07-17 17:04 | NUR ---
Nursing Progress Note: Legal hold: 5250 Client on involuntary status for GD Report received from LUCRECIA Dias, with use of SBAR: Why are they here: The patient is a 44 year old female from [facility]. She had been living at [facility]. She has a history of Depression, Schizophrenia, DMII, Hypothyroidism, and Knee Pain. It is reported in outside medical records she stopped taking her medications 1 week ago, but in another area it was reported no meds taken for the last 30 days. The assisted reported she stopped eating, speaking, and could no longer care for herself. The patient does not speak. She will follow simple commands like "open your mouth" or "put your hands down" when prompted several times. She keeps her eyes shut and has rigid, shaky movements. Pt. is virtually catatonic, and is on LOS r/t fall precautions. Assessment What has happened this shift: Patient is asleep at change of shift and awoken for breakfast. Patient used a walker today to get to breakfast and lunch, steady gait. Patient subdued and only speaks when spoken to. Patient denies suicidal ideation. Denies hallucinations and depression. Patient looks very depressed. RN tried to engage in conversation with patient but patient just answered shortly and did not want to talk. Patient slept through both groups today but got up for snacks. Patient took a shower today but could not follow directions to wash her hair and needed assistance. Patient also needed directions to wash her perineum. S/I, H/I: Pt denied A/VH: Pt denied Sleep: Patient slept a lot during the day time hours. ADL's: Needed assistance in shower but walked well to CR with walker. Group attendance: no Were meds taken: Yes Any med S/E: no Mental Status Exam Appearance: Clean in clean scrubs. Showered today Eye contact: direct Behavior: Cooperative Speech: Poverty of speech Mood: Depressed Affect: restricted Thought process: Linear Thought Content: unable to ascertain Cognition: A/O X 3 Insight: Poor Judgment: Poor Interventions PRN's used: None. Therapeutic interventions: 1:1 assessment, establishment of rapport, maintained a safe and therapeutic environment, medication administration/monitoring/education, Q2H scheduled toileting, assistance/prompting with repositioning in bed and chair, assist with ADLs, encouragement to perform personal hygiene, bed alarm while in bed, maintained Q 15 min safety checks and fall precautions. Restraints/seclusion/emergency medication: N/A Justification of Continued Inpatient Treatment: Pt had a decline in cognition and function, continued therapeutic support and medication management needed to provide stabilization, prevent decompensation, decreasing risk to patient and re-admittance. Plan is for [facility] to [facility] once stable.
[2019-07-17 20:00] VITALS: BP 113/56
[2019-07-17] MEDS: CLOZAPINE 100 MG TAB.RAPDIS PO SCH (21:16)
[2019-07-17] MEDS: lithium carbonate 150mg capsule PO SCH (21:16)
[2019-07-17] MEDS: CLOZAPINE 25 MG oral disintegrating tablet PO SCH (21:16)
--- NOTE | 2019-07-18 03:30 | NUR ---
Nursing Progress Note: Legal hold: 5250 Client on involuntary status for GD Report received from LUCRECIA Betancur, with use of SBAR: Why are they here: The patient is a 44 year old female from [facility]. She had been living at [facility]. She has a history of Depression, Schizophrenia, DMII, Hypothyroidism, and Knee Pain. It is reported in outside medical records she stopped taking her medications 1 week ago, but in another area it was reported no meds taken for the last 30 days. The [facility] reported she stopped eating, speaking, and could no longer care for herself. The patient does not speak. She will follow simple commands like "open your mouth" or "put your hands down" when prompted several times. She keeps her eyes shut and has rigid, shaky movements. Pt. is virtually catatonic, and is on LOS r/t fall precautions. Assessment What has happened this shift: Pt sleeping at change of shift. Assisted pt to toileting, changed her bedding, and encouraged her to join peers in group room while waiting for snack. Pt walked with FWW to group room, steady gait. Pt responds to closed questions and occasionally nods as response but otherwise does not engage. Pt stated she feels depressed but is unable to elaborate as to the reason behind the mood. Pt cooperates with directed care regarding her ADLs. Pt compliant with medication but during second toileting assist, a oblong white pill was found at her bedside (looks to be lithium). Pt is potentially cheeking medications, and staff will con't to monitor. Pt went to sleep after having snack and watching TV. S/I, H/I: Denies Both A/VH: Denies Both Sleep: Patient slept a lot during the day time hours. ADL's: Needs prompting to urinate, Uses FWW Group attendance: N/A Were meds taken: Yes; Potentially cheeking medications, will con't to monitor Any med S/E: None reported nor observed. Mental Status Exam Appearance: Clean, neat wearing unit scrubs, depends, nonskid socks Eye contact: Poor Behavior: Cooperative, Attended Snack Speech: Clear, Soft, Poverty of speech Mood: Depressed 8/10 Affect: Flat Thought process: Linear Thought Content: Poverty of thought Cognition: A/Ox3 (off for circumstance) Insight: Poor Judgment: Poor Interventions PRN's used: None Therapeutic interventions: 1:1 assessment, establishment of rapport, maintained a safe and therapeutic environment, medication administration/monitoring/education, Q2H scheduled toileting, assistance/prompting with repositioning in bed and chair, bed alarm while in bed, maintained Q 15 min safety checks and fall precautions. Restraints/seclusion/emergency medication: N/A Justification of Continued Inpatient Treatment: Pt had a decline in cognition and function, continued therapeutic support and medication management needed to provide stabilization, prevent decompensation, decreasing risk to patient and re-admittance. Plan is for patient to return to retirement once stable.
[2019-07-18 07:02] LABS: BASOPHILS % (AUTO) 0.6 % (0-1); EOSINOPHILS # (AUTO) 0.6 X10'3 (0-0.9); EOSINOPHILS % (AUTO) 9.4 % (0-6); HEMATOCRIT 39.7 % (35.0-45.0); HEMOGLOBIN 13.7 g/dl (12.0-16.0); LYMPHOCYTES # (AUTO) 1.7 X10'3 (1.1-4.8); LYMPHOCYTES % (AUTO) 25.3 % (21-51); MEAN CORPUSCULAR HEMOGLOBIN 32.6 PG (27.0-31.0); MEAN CORPUSCULAR HGB CONC 34.6 g/dL (33.0-36.5); MEAN PLATELET VOLUME 8.1 FL (7.4-10.4); MONOCYTES # (AUTO) 0.8 X10'3 (0-0.9); MONOCYTES % (AUTO) 12.9 % (2-12); NEUTROPHILS # (AUTO) 3.4 X10'3 (1.8-7.7); NEUTROPHILS % (AUTO) 51.8 % (42-75); PLATELET COUNT 248 X10'3 (140-440); RED BLOOD COUNT 4.22 X10'6 (4.20-5.60); RED CELL DISTRIBUTION WIDTH 12.4 % (11.5-14.5); WHITE BLOOD COUNT 6.6 X10'3 (4.5-11.0)
[2019-07-18] MEDS: lactobacillus rhamnosus 10,000 MMU CELLS/CAPSULE PO SCH ×2 (07:43→21:32)
[2019-07-18] MEDS: LORazepam 1 MG tablet PO SCH ×3 (07:43→16:36)
[2019-07-18] MEDS: levoTHYROXINE 125mcg tablet PO SCH (07:43)
[2019-07-18] MEDS: venlafaxine XR 75mg capsule (Q24H) PO SCH (07:43)
[2019-07-18 07:48] VITALS: BP 95/69
--- NOTE | 2019-07-18 15:59 | NUR ---
Discharge Planning Presenting Issues: Pt's making progress, attending groups, responding positively when prompted by care team to attend to her ADLs, responding to simple yes/no questions, taking meds, maybe at new baseline of functioning. Interventions: CM-discharge planning/Linkages SS received t/c from pt's [facility] clinician, per t/c, pt has a bed @ the [facility] and can go there next Monday-07/22/19 sometime in the afternoon, [facility] to transport and schedule her appointment when she returns to their care. Plan: SS will contact [facility] monday to finalize dcp. Michelle Johnson LCSW Addendum: 07/18/19 at 1605 by Michelle Johnson Amended: Links added.
--- NOTE | 2019-07-18 17:32 | NUR ---
Nursing Progress Note: Legal hold: 5250 Client on involuntary status for GD Report received from LUCRECIA Dias, with use of SBAR: Why are they here: The patient is a 44 year old female from [facility]. She had been living at [facility]. She has a history of Depression, Schizophrenia, DMII, Hypothyroidism, and Knee Pain. It is reported in outside medical records she stopped taking her medications 1 week ago, but in another area it was reported no meds taken for the last 30 days. The assisted reported she stopped eating, speaking, and could no longer care for herself. The patient does not speak. She will follow simple commands like "open your mouth" or "put your hands down" when prompted several times. She keeps her eyes shut and has rigid, shaky movements. Pt. is virtually catatonic, and is on LOS r/t fall precautions. Assessment What has happened this shift: Patient is observed sleeping at change of shift. She is difficult to wake but when she does, she sits up and takes her medications without any issue. At breakfast time she asks where to go, is shown, and then uses the walker to assist her down to the group room. She eats her meal and then returns to her room. Patient is observed ambulating by herself with the use of walker throughout the day. She is encouraged to get up to the bathroom throughout the day, once she denies needing to go and refuses to get up. She is checked on later and gets up to void without any issue. Patient denies any needs. S/I, H/I: Denies A/VH: Denies Sleep: 6.5hrs NOC and rested during the day ADL's: Needs prompting to urinate, Uses FWW Group attendance: yes Were meds taken: Yes Any med S/E: None reported nor observed. Mental Status Exam Appearance: Clean, neat wearing unit scrubs, depends, nonskid socks Eye contact: direct Behavior: Cooperative Speech: Clear, Soft, Poverty of speech Mood: reports depression, appears content Affect: Flat Thought process: Linear Thought Content: Poverty of thought Cognition: A/Ox3 Insight: Poor Judgment: Poor Interventions PRN's used: None Therapeutic interventions: 1:1 assessment, establishment of rapport, maintained a safe and therapeutic environment, medication administration/monitoring/education, Q2H scheduled toileting, bed alarm while in bed, maintained Q 15 min safety checks and fall precautions. Restraints/seclusion/emergency medication: N/A Justification of Continued Inpatient Treatment: Pt had a decline in cognition and function, continued therapeutic support and medication management needed to provide stabilization, prevent decompensation, decreasing risk to patient and re-admittance. Plan is for [facility].
[2019-07-18] MEDS: amox tr/potassium clavulanate 875/125mg TAB PO SCH (18:25)
[2019-07-18 20:00] VITALS: BP 103/64
[2019-07-18] MEDS ORDERED: CLOZAPINE 25 MG oral disintegrating tablet PO SCH ×2 (21:00)
[2019-07-18] MEDS: lithium carbonate 150mg capsule PO SCH (21:33)
[2019-07-18] MEDS: CLOZAPINE 100 MG TAB.RAPDIS PO SCH (21:33)
[2019-07-18] MEDS: acetaminophen 325mg tablet PO PRN (21:33)
--- NOTE | 2019-07-19 02:26 | NUR ---
Nursing Progress Note: Legal hold: 5250 Client on involuntary status for GD Report received from LUCRECIA Jack, with use of SBAR: Why are they here: The patient is a 44 year old female from [facility]. She had been living at [facility]. She has a history of Depression, Schizophrenia, DMII, Hypothyroidism, and Knee Pain. It is reported in outside medical records she stopped taking her medications 1 week ago, but in another area it was reported no meds taken for the last 30 days. The [facility] reported she stopped eating, speaking, and could no longer care for herself. The patient does not speak. She will follow simple commands like "open your mouth" or "put your hands down" when prompted several times. She keeps her eyes shut and has rigid, shaky movements. Pt. is virtually catatonic, and is on LOS r/t fall precautions. Assessment What has happened this shift: Pt sitting in bed, staring at nothing in particular upon initial encounter. Assisted pt to toileting & changed her depend, changed her bedding, and encouraged her to join peers in group room while waiting for snack. Pt walked with FWW to group room, steady gait. Pt only stated she was "so-so" and then responded to all other assessment questions with nods or hand gestures. Pt denies depression today, and does appear more content than last night. Pt cooperates with directed care regarding her ADLs but needs to be prompted and sometimes guided in order to complete care. Pt compliant with medications and listened to headphones for 30 minutes before this RN put them away and encouraged the pt to go to sleep. Patient toileted at 0130; depends were not soiled and pt urinated in the toilet. Pt having acute ear pain; Tylenol administered. S/I, H/I: Denies Both A/VH: Denies Both Sleep: See Sleep Assessment ADL's: Needs prompting, Uses FWW Group attendance: N/A Were meds taken: Yes; Pt opened mouth and moved tongue to demonstrate she had taken all meds for this RN Any med S/E: None reported nor observed Mental Status Exam Appearance: Clean, neat wearing unit scrubs, depends, nonskid socks Eye contact: Poor Behavior: Cooperative, Attended Snack Speech: Clear, Soft, Poverty of speech - Pt primarily uses hand gestures or nods to communicate Mood: "So-So" Affect: Flat Thought process: Linear Thought Content: Poverty of thought Cognition: A/Ox3 (off for circumstance) Insight: Poor Judgment: Poor Interventions PRN's used: Tylenol 650mg for ear pain to good effect Therapeutic interventions: 1:1 assessment, establishment of rapport, maintained a safe and therapeutic environment, medication administration/monitoring/education, Q2H scheduled toileting, assistance/prompting with repositioning in bed and chair, bed alarm while in bed, maintained Q 15 min safety checks and fall precautions. Restraints/seclusion/emergency medication: N/A Justification of Continued Inpatient Treatment: Pt had a decline in cognition and function, continued therapeutic support and medication management needed to provide stabilization, prevent decompensation, decreasing risk to patient and re-admittance. Plan is for patient to return to custodial once stable. Per SW notes, pt has a bed available on 07/22/19 at [facility]. Addendum: 07/19/19 at 0238 by Shaye Fontana RN PRN: Additional Tylenol 650mg for ear pain. Pt received 2 doses this shift. Addendum: 07/19/19 at 0523 by Shaye Fontana RN Pt toileted 1999, 199. Refused 0515 toileting "No." Pt depend changed at 1999, and it was dry at time of 199 urination.
[2019-07-19 07:30] VITALS: BP 108/65
[2019-07-19] MEDS: levoTHYROXINE 125mcg tablet PO SCH (08:01)
[2019-07-19] MEDS: LORazepam 1 MG tablet PO SCH ×3 (08:02→16:24)
[2019-07-19] MEDS: venlafaxine XR 37.5mg cap (Q24H) PO SCH (08:02)
[2019-07-19] MEDS: amox tr/potassium clavulanate 875/125mg TAB PO SCH ×2 (08:02→17:12)
[2019-07-19] MEDS: lactobacillus rhamnosus 10,000 MMU CELLS/CAPSULE PO SCH ×2 (08:05→20:15)
[2019-07-19] MEDS: naproxen sodium 220mg tablet PO PRN ×2 (10:52→19:45)
--- NOTE | 2019-07-19 13:42 | NUR ---
CM-Linkage Presenting Issues: Pt is 5250 will on Monday07/27/19, pt is making progress aeb maintains eye contact when she is conversing with staff, taking her meals in the dining room with other patients, she is also responding to questions verbally (one-two words) however, pt continues to require significant support to attend to her ADLs aeb needs prompting to get out of bed, to attend to her hygeine needs and to come to meals. Interventions: CM-Linkages SS had t/c w/pt's clinician-Chelsey from [facility], per t/c Chelsey will come in to meet pt between 4:30 & 5:00 PM today. Pt & her attending RN were informed of visit. Plan: SS will continue to engage [facility] in dcp activities. Addendum: 07/19/19 at 1356 by Michelle Johnson Amended: Links added.
--- NOTE | 2019-07-19 15:20 | NUR ---
Nursing Progress Note: Hayes Legal hold: 5250 expires 07/27 DC to [facility] on Monday Client on voluntary/involuntary status for GD. Report received from nurse with use of NATHAN Cr RN. Why are they here: History of schizophrenia with recent decompensation related to patient refusing meds. She refused to bathe and take care of herself. Also refused to eat or drink. She was brought to [facility] for her altered level of consciousness. reported the patient had been going down hill for about 3 months. Assessment What has happened this shift: Patient was sleeping at change of shift. Woke easily when told breakfast was here. She toileted self and was reported to have been dry. Ambulated independently with FWW to community room for breakfast. Was med compliant. [facility] to meet with patient this afternoon. Patient showered with assistance. S/I, H/I: Denies A/VH: Denies (no signs of response to internal stimuli) Sleep: 7.25, remains very drowsy ADL's: Showered with assistance Group attendance: No Were meds taken: Yes Any med S/E None observed Mental Status Exam Appearance: disheveled, green scrubs Eye contact: fair, closed unless being spoken to Behavior: Withdrawn, will only answer yes/no questions Speech: clear, one word responses Mood: calm Affect: congruent with mood Thought process: Poverty of speech Thought Content: Unable to determine Cognition: A & O to person and place Insight: Poor Judgment: Poor Interventions PRN's used: None Therapeutic interventions: 1:1 assessment, establishment of therapeutic rapport, maintained a calm, supportive environment, medication administration, with education and monitoring for effectiveness or side effects. Q2H scheduled toileting, maintained Q 15 min safety checks and fall precautions. Restraints/seclusion/emergency medication: N/A Justification of Continued Inpatient Treatment: Pt had a decline in cognition and function, continued therapeutic support and medication management needed to provide stabilization, prevent decompensation, decreasing risk to patient and re-admittance.. Per [facility] notes, pt has a bed available on 07/22/19 at [facility]. [facility] to transport and will be here in afternoon.
[2019-07-19 20:00] VITALS: BP 121/71
[2019-07-19] MEDS: acetaminophen 325mg tablet PO PRN (20:15)
[2019-07-19] MEDS: CLOZAPINE 100 MG TAB.RAPDIS PO SCH (20:15)
[2019-07-19] MEDS: lithium carbonate 150mg capsule PO SCH (20:16)
--- NOTE | 2019-07-20 02:52 | NUR ---
Nursing Progress Note: Legal hold: 5250 Client on involuntary status for GD Report received from LUCRECIA Jack, with use of SBAR: Why are they here: The patient is a 44 year old female from [facility]. She had been living at [facility]. She has a history of Depression, Schizophrenia, DMII, Hypothyroidism, and Knee Pain. It is reported in outside medical records she stopped taking her medications 1 week ago, but in another area it was reported no meds taken for the last 30 days. The nursing home reported she stopped eating, speaking, and could no longer care for herself. The patient does not speak. She will follow simple commands like "open your mouth" or "put your hands down" when prompted several times. She keeps her eyes shut and has rigid, shaky movements. Pt. is virtually catatonic, and is on LOS r/t fall precautions. Assessment What has happened this shift: Pt in room at change of shift. Prompted pt to toilet & change her depend; pt completed both tasks on her own. Pt was then encouraged her to join peers in group room while waiting for snack. Pt walked with FWW to group room, steady gait. Pt isolates to self, preferring not to engage with others. Pt cooperates with directed care regarding her ADLs but needs to be prompted and sometimes guided in order to complete care. Pt requires reorientation to unit aeb needing direction to group room and back to her room. Pt compliant with medications. Patient toileted at 0215; pt urinated, depends dry. Pt having acute ear pain; Tylenol and naproxen administered. S/I, H/I: Denies Both A/VH: Denies Both Sleep: See Sleep Assessment ADL's: Needs prompting, Uses FWW Group attendance: N/A Were meds taken: Yes; Pt opened mouth and moved tongue to demonstrate she had taken all meds for this RN Any med S/E: None reported nor observed Mental Status Exam Appearance: Clean, neat wearing unit scrubs, depends, nonskid socks Eye contact: Poor, More than previous nights Behavior: Cooperative, Attended Snack Speech: Clear, Soft, Poverty of speech - Minimal verbal response to closed questions, Head Nods Mood: "Good" Affect: Flat Thought process: Linear Thought Content: Poverty of thought Cognition: A/Ox3 (off for circumstance) Insight: Poor Judgment: Poor Interventions PRN's used: Tylenol 650mg, Naproxen 220mg for ear pain to good effect Therapeutic interventions: 1:1 assessment, establishment of rapport, maintained a safe and therapeutic environment, medication administration/monitoring/education, scheduled toileting, maintained Q 15 min safety checks and fall precautions. Restraints/seclusion/emergency medication: N/A Justification of Continued Inpatient Treatment: Pt had a decline in cognition and function, continued therapeutic support and medication management needed to provide stabilization, prevent decompensation, decreasing risk to patient and re-admittance. Plan is for patient to return to custodial once stable. Per [facility] notes, pt has a bed available on 07/22/19 at [facility]. Addendum: 07/20/19 at 05 by Shaye Fontana RN Pt given PRN Tylenol 650mg for ear pain; pt prompted to toilet again. Pt depend soiled and changed, pt urinated. All care done independently, pt just required direction.
[2019-07-20] MEDS: acetaminophen 325mg tablet PO PRN ×2 (05:46→11:10)
[2019-07-20 07:51] VITALS: BP 140/43
[2019-07-20 07:54] VITALS: BP 93/66
[2019-07-20] MEDS: venlafaxine XR 37.5mg cap (Q24H) PO SCH (07:59)
[2019-07-20] MEDS: lactobacillus rhamnosus 10,000 MMU CELLS/CAPSULE PO SCH ×2 (07:59→20:43)
[2019-07-20] MEDS: amox tr/potassium clavulanate 875/125mg TAB PO SCH ×2 (08:00→16:49)
[2019-07-20] MEDS: LORazepam 1 MG tablet PO SCH ×3 (08:00→16:49)
[2019-07-20] MEDS: levoTHYROXINE 125mcg tablet PO SCH (08:00)
[2019-07-20] MEDS: naproxen sodium 220mg tablet PO PRN (14:53)
--- NOTE | 2019-07-20 16:29 | NUR ---
Nursing Progress Note: Legal hold: 5250 Client on involuntary status for GD Report received from LUCRECIA Cr, with use of SBAR: Why are they here: The patient is a 44 year old female from [facility]. She had been living at [facility]. She has a history of Depression, Schizophrenia, DMII, Hypothyroidism, and Knee Pain. It is reported in outside medical records she stopped taking her medications 1 week ago, but in another area it was reported no meds taken for the last 30 days. The [facility] reported she stopped eating, speaking, and could no longer care for herself. The patient does not speak. She will follow simple commands like "open your mouth" or "put your hands down" when prompted several times. She keeps her eyes shut and has rigid, shaky movements. Pt. is virtually catatonic, and is on LOS r/t fall precautions. Assessment What has happened this shift: Patient is observed sleeping at shift change. She wakes and uses FWW unassisted to join others in the group room for breakfast. When greeted she returns a Good morning to this lead technical writer. She makes direct eye contact, is not conversational but answers questions with one word answers or nods of the head. She reports that she continues to have ear pain, warm compress provided and Tylenol administered. Patient stays in group room for awhile after breakfast and then returns to her room until lunch. She complains again of ear pain, warm compress and hot tea provided, Aleve administered and patient returned to sleep. Patient is encouraged to use toilet and states she already went, she denies needing assistance and states she is doing fine herself. She denies needing her depends changes, again stating that she can do it herself. RN offered patient flu vaccination and patient states that she does not want it. RN provided education and patient refused. S/I, H/I: Denies A/VH: Denies Sleep: 8.25hrs NOC and rested during the day ADL's: Needs prompting, Uses FWW Group attendance: no Were meds taken: Yes Any med S/E: None reported nor observed Mental Status Exam Appearance: Clean, dressed appropriate for unit, hair disheveled Eye contact: direct Behavior: Cooperative Speech: Clear, Soft tone, Poverty of speech Mood: good Affect: Flat Thought process: Linear Thought Content: Poverty of thought Cognition: A/Ox3 Insight: Poor Judgment: Poor Interventions PRN's used: Tylenol 650mg, Naproxen 220mg for ear pain Therapeutic interventions: 1:1 assessment, establishment of rapport, maintained a safe and therapeutic environment, medication administration/monitoring/education, scheduled toileting, maintained Q 15 min safety checks and fall precautions. Restraints/seclusion/emergency medication: N/A Justification of Continued Inpatient Treatment: Pt had a decline in cognition and function, continued therapeutic support and medication management needed to provide stabilization, prevent decompensation, decreasing risk to patient and re-admittance. Plan is for patient to return to retirement once stable. Per notes, pt has a bed available on 07/22/19 at [facility].
[2019-07-20 20:00] VITALS: BP 94/64
[2019-07-20] MEDS: CLOZAPINE 100 MG TAB.RAPDIS PO SCH (20:43)
[2019-07-20] MEDS: lithium carbonate 150mg capsule PO SCH (20:43)
--- NOTE | 2019-07-21 02:52 | NUR ---
Nursing Progress Note: Legal hold: 5250 Client on involuntary status for GD Report received from LUCRECIA Jack, with use of SBAR: Why are they here: The patient is a 44 year old female from [facility]. She had been living at [facility]. She has a history of Depression, Schizophrenia, DMII, Hypothyroidism, and Knee Pain. It is reported in outside medical records she stopped taking her medications 1 week ago, but in another area it was reported no meds taken for the last 30 days. The custodial reported she stopped eating, speaking, and could no longer care for herself. The patient does not speak. She will follow simple commands like "open your mouth" or "put your hands down" when prompted several times. She keeps her eyes shut and has rigid, shaky movements. Pt. is virtually catatonic, and is on LOS r/t fall precautions. Assessment What has happened this shift: Patient is in her room following shift change. Patient is oriented to person, place, and time. The patient is slow to answer any questions. She denies S/I or H/I, she does not admit to hallucinations. The patient roles over in bed away from music writer and states "I want to sleep. Patient gives one word answers, "yes, no.." Later patient went to the community room for snacks, she then returned to bed. This patient self isolates. She resists conversation. Patient makes no delusional statements. The patient was advised she is in a safe place, she nods her head in acknowledgement. S/I, H/I: Denies. A/VH: Denies. Sleep: Patient intermittent sleeps since shift change. ADL's: Needs prompting, Uses walker to ambulate. Patient up for snacks only. Group attendance: No attendance on days. Were meds taken: Yes. Any med S/E: None reported nor observed. Mental Status Exam Appearance: Clean, dressed appropriate for unit, hair disheveled. Eye contact: Direct. Behavior: Cooperative. Speech: Clear, Soft tone, Poverty of speech Mood: Good. Affect: Flat. Thought process: Linear. Thought Content: Poverty of thought Cognition: A/Ox3. Insight: Poor. Judgment: Poor. Interventions PRN's used:None. Therapeutic interventions: 1:1 assessment, establishment of rapport, maintained a safe and therapeutic environment, medication administration/monitoring/education, scheduled toileting, maintained Q 15 min safety checks and fall precautions. Restraints/seclusion/emergency medication: N/A Justification of Continued Inpatient Treatment: Pt had a decline in cognition and function, continued therapeutic support and medication management needed to provide stabilization, prevent decompensation, decreasing risk to patient and re-admittance. Plan is for patient to return to snf once stable. Per SW notes, pt has a bed available on 07/22/19 at [facility].
[2019-07-21] MEDS: naproxen sodium 220mg tablet PO PRN ×2 (04:59→10:51)
--- NOTE | 2019-07-21 05:38 | NUR ---
Patient complaining of an earache, patient would not specify which ear? Naproxen given PO.
[2019-07-21] MEDS: amox tr/potassium clavulanate 875/125mg TAB PO SCH ×2 (07:45→18:24)
[2019-07-21] MEDS: LORazepam 1 MG tablet PO SCH ×3 (07:46→15:13)
[2019-07-21] MEDS: lactobacillus rhamnosus 10,000 MMU CELLS/CAPSULE PO SCH ×2 (07:46→21:30)
[2019-07-21] MEDS: venlafaxine XR 37.5mg cap (Q24H) PO SCH (07:46)
[2019-07-21] MEDS: levoTHYROXINE 125mcg tablet PO SCH (07:46)
[2019-07-21 08:00] VITALS: BP 90/59
[2019-07-21] MEDS: acetaminophen 325mg tablet PO PRN (15:13)
--- NOTE | 2019-07-21 17:17 | NUR ---
Nursing Progress Note: Legal hold: 5250 Client on involuntary status for GD Report received from Cruz RN, with use of SBAR: Why are they here: The patient is a 44 year old female from [facility]. She had been living at [facility]. She has a history of Depression, Schizophrenia, DMII, Hypothyroidism, and Knee Pain. It is reported in outside medical records she stopped taking her medications 1 week ago, but in another area it was reported no meds taken for the last 30 days. The intermediate reported she stopped eating, speaking, and could no longer care for herself. The patient does not speak. She will follow simple commands like "open your mouth" or "put your hands down" when prompted several times. She keeps her eyes shut and has rigid, shaky movements. Pt. is virtually catatonic, and is on LOS r/t fall precautions. Assessment What has happened this shift: Patient is observed sleeping at change of shift. She is woken just prior to breakfast to take her medicaitons. She takes all her meds without issue. Patient states that she cannot remember the last time she had a BM, MOM administered and prune juice provided. Patient states that she is getting up and using the bathroom on her own and does not need assistance. She denies inconinance and promises she will let this RN know if she is in need of new depends. She reports that her ear is hurting, Aleve administered, hot tea and hot compress provided. Patient spends the afternoon watching football in the group room with others. When asked questions she answers with no, thank you and yes please. She keeps her hands folded in her lap and makes direct eye contact. Patient complains of ear pain again in the afternoon, hot tea, hot compress and Tylenol provided. S/I, H/I: Denies A/VH: Denies Sleep: 9hrs NOC and rested during the day ADL's: Needs prompting, Uses FWW Group attendance: no Were meds taken: Yes Any med S/E: None reported nor observed Mental Status Exam Appearance: dressed appropriate for unit, hair dishveled Eye contact: direct Behavior: Cooperative, friendly Speech: Clear, Soft tone, Poverty of speech Mood: good Affect: Flat Thought process: Linear Thought Content: Poverty of thought Cognition: A/Ox3 Insight: Poor Judgment: Poor Interventions PRN's used: Tylenol 650mg, Naproxen 220mg for ear pain Therapeutic interventions: 1:1 assessment, establishment of rapport, maintained a safe and therapeutic environment, medication administration/monitoring/education, scheduled toileting, maintained Q 15 min safety checks and fall precautions. Restraints/seclusion/emergency medication: N/A Justification of Continued Inpatient Treatment: Pt had a decline in cognition and function, continued therapeutic support and medication management needed to provide stabilization, prevent decompensation, decreasing risk to patient and re-admittance. Plan is for patient to return to residential once stable. Per notes, pt has a bed available on 07/22/19 at [facility].
[2019-07-21 19:42] VITALS: BP 109/66
[2019-07-21] MEDS ORDERED: CLOZAPINE 100 MG TAB.RAPDIS PO SCH (21:00)
[2019-07-21] MEDS ORDERED: CLOZAPINE 25 MG oral disintegrating tablet PO SCH (21:00)
[2019-07-21] MEDS: lithium carbonate 150mg capsule PO SCH (21:29)
--- NOTE | 2019-07-22 01:24 | NUR ---
Nursing Progress Note: Legal hold: 5250 Client on involuntary status for GD Report received from LUCRECIA Urbina, with use of SBAR: Why are they here: The patient is a 44 year old female from [facility]. She had been living at [facility]. She has a history of Depression, Schizophrenia, DMII, Hypothyroidism, and Knee Pain. It is reported in outside medical records she stopped taking her medications 1 week ago, but in another area it was reported no meds taken for the last 30 days. The [facility] reported she stopped eating, speaking, and could no longer care for herself. The patient does not speak. She will follow simple commands like "open your mouth" or "put your hands down" when prompted several times. She keeps her eyes shut and has rigid, shaky movements. Pt. is virtually catatonic, and is on LOS r/t fall precautions. Assessment What has happened this shift: Pt in bed at start of shift. Pt makes good eye contact. Answers questions, pt looking forward to discharge. Cooperative with care took all meds. S/I, H/I: Denies A/VH: Denies Sleep: alseep at this time ADL's: Needs prompting, Uses FWW Group attendance: no Were meds taken: Yes Any med S/E: None reported nor observed Mental Status Exam Appearance: dressed appropriate for unit, hair dishveled Eye contact: direct Behavior: Cooperative, friendly Speech: Clear, Soft tone, Poverty of speech Mood: good Affect: blunted Thought process: Linear Thought Content: Poverty of thought Cognition: A/Ox3 Insight: Poor Judgment: Poor Interventions PRN's used: none Therapeutic interventions: 1:1 assessment, establishment of rapport, maintained a safe and therapeutic environment, medication administration/monitoring/education, scheduled toileting, maintained Q 15 min safety checks and fall precautions. Restraints/seclusion/emergency medication: N/A Justification of Continued Inpatient Treatment: Pt had a decline in cognition and function, continued therapeutic support and medication management needed to provide stabilization, prevent decompensation, decreasing risk to patient and re-admittance. Plan is for patient to return to [facility] once stable. Per notes, pt has a bed available on 07/22/19 at [facility].
[2019-07-22] MEDS: amox tr/potassium clavulanate 875/125mg TAB PO SCH (07:42)
[2019-07-22] MEDS: LORazepam 1 MG tablet PO SCH ×2 (07:42)
[2019-07-22] MEDS: lactobacillus rhamnosus 10,000 MMU CELLS/CAPSULE PO SCH (07:42)
[2019-07-22] MEDS: levoTHYROXINE 125mcg tablet PO SCH (07:42)
[2019-07-22] MEDS: naproxen sodium 220mg tablet PO PRN (07:45)
[2019-07-22] MEDS ORDERED: venlafaxine XR 75mg capsule (Q24H) PO SCH (08:00)
[2019-07-22 08:17] VITALS: BP 88/60
--- NOTE | 2019-07-22 11:37 | NUR ---
DCP-Pharmacy Presenting Issues: SS received t/c from pt's [facility]'s clinician requesting that pt's meds be called into [facility] in [place] as they will deliver to the board & halfway. Interventions: CM AUDREY made changes to pt's DCP in MDT to reflect change re pharmacy & notified care team. Plan: Pt will be picked up @ 1:00 PM by [facility] trailer driver who will take d/c packet. Michelle Johnson LCSW Addendum: 07/22/19 at 1145 by Michelle Johnson Amended: Links added.
[2019-07-22] MEDS ORDERED: ATI1T PO (12:26)
[2019-07-22] MEDS ORDERED: LACT1CAP26 PO (12:26)
[2019-07-22] MEDS ORDERED: CLOZ100T35 PO (12:26)
[2019-07-22] MEDS ORDERED: VENL75CA61 PO (12:26)
[2019-07-22] MEDS ORDERED: AMOX-580 PO (12:26)
[2019-07-22] MEDS ORDERED: CLOZ25TA PO (12:26)
--- NOTE | 2019-07-22 14:14 | NUR ---
Nursing Discharge Note: Patient is discharged off the unit at 1310. She uses FWW and is accompanied by SKY Vazquez and [facility] Water[facility]. She will be transported to [facility] in [place]. Patient has no S/S of distress. Printed follow up and discharge instructions provided to and gone over with patient. Patient is allowed opportunity to ask questions and verbalizes understanding of information provided. Patients possessions returned to her. Patient has improved since admit, patient is communicating, eating and providing hygiene care to herself. Community crisis service information and national suicide hotline handout given. Patient is not offered nicotine replacement because patient does not use nicotine.
--- NOTE | 2019-07-22 14:29 | NUR ---
SS received t/c from [facility] staff, per t/c house staff is confused as meds info in pt's d/c packet did not match written scripts. SS consulted w/nursing staff, per consult RN will call pt's meds to [facility] in [place] . Michelle Johnson GUM ROLLING MACHINE OPERATOR Addendum: 07/22/19 at 1432 by Michelle VENTURA Amended: Links added.
--- NOTE | 2019-07-22 15:03 | NUR ---
Pt's d/c'd to [facility] & transported to [facility] in [facility] [place] called into [facility]. SS referral closed. Michelle Johnson LCSW Addendum: 07/22/19 at 1504 by Michelle Johnson SS Amended: Links added.
== END 2019-07-22 13:14 | disposition home or self-care (01) | DRG 750 ==
LOC: ADULT MH 11:03
PROVIDERS: ADMIT Psychiatry & Neurology Psychiatry; ATTEND Psychiatry & Neurology Psychiatry
DX: F20.9 Schizophrenia, unspecified (principal); E11.9 Type 2 diabetes mellitus without complications; E03.9 Hypothyroidism, unspecified; F15.10 Other stimulant abuse, uncomplicated; H66.92 Otitis media, unspecified, left ear; Z79.51 Long term (current) use of inhaled steroids; Z79.899 Other long term (current) drug therapy; Z87.891 Personal history of nicotine dependence; Z98.51 Tubal ligation status
CPT/HCPCS: 36415; 71045; 80053; 80061; 80178; 82550; 82948; 83036; 84443; 85025; 87081; 99285; Q2037